=== PATIENT | female | born 1995 | race Hispanic/Latino ===

== ENCOUNTER 2020-09-06 13:34 | Emergency (ER) | payer MEDICAID, OTHER ==
[~2020-09-06] VITALS: Ht 160 cm; Wt 83.9 kg
[2020-09-06 13:45] VITALS: BP 107/68
[2020-09-06] MEDS ORDERED: ACETAMINOPHEN 325 MG TAB ONE (14:51)
[2020-09-06] MEDS ORDERED: ACETAMINOPHEN 325 MG TAB PO ONE (15:00)
[2020-09-06 15:20] VITALS: BP 113/58
== END 2020-09-06 15:20 | disposition home or self-care (01) ==
LOC: EDH 13:34
DX: S63.92XA Sprain of unspecified part of left wrist and hand, initial encounter (principal); W01.0XXA Fall on same level from slipping, tripping and stumbling without subsequent striking against object, initial encounter; Y93.89 Activity, other specified; Y92.89 Other specified places as the place of occurrence of the external cause; Y99.8 Other external cause status
CPT/HCPCS: 73110